=== PATIENT | male | born 1990 | race African-American/Black ===

== ENCOUNTER 2016-11-19 22:01 | Emergency (ER) | payer SELFPAY ==
[~2016-11-19] VITALS: Ht 182.9 cm; Wt 62.5 kg
[~2016-11-19 22:01] MED LIST: ACET1TAB40 PO; AUG875 PO
[2016-11-19 23:20] VITALS: Ht 182.9 cm; Wt 62.5 kg
--- NOTE | 2016-11-20 02:34 | RADRPT ---
PROCEDURE: Chest. CLINICAL INDICATION: Cough. TECHNIQUE: 2 frontal views of the chest were obtained. COMPARISON: None. FINDINGS: The cardiac silhouette is within normal limits. The aortic arch is unremarkable. There is no focal consolidation, vascular congestion or pleural effusion. There is no pneumothorax. IMPRESSION: No evidence for active cardiopulmonary disease. .Jj Lyle MD, Date Time Electronically viewed and signed by .Jj Lyle MD, on 11/20/2016 02:33 .T/
[2016-11-20] MEDS ORDERED: AZIT250T94 PO (02:45)
--- NOTE | 2016-11-20 02:46 | ERD ---
ER Documentation Chief Complaint Date/Time DATE: 11/20/16 TIME: 02:46 Chief Complaint CP/chronic cough x 1 -2 months, hx of HIV, referred by PMD for chest xray. HPI Patient is a 26-year-old male with a past medical history of HIV (diagnosed in 2014, has not received treatment yet) presents to the emergency department with chest pain and a cough 2 months. Patient states that he has chest pain only when coughing. Patient states that his cough is productive in nature. Patient states that he is able to "cough up green sputum on command." Patient states that he feels as if he is "drowning in his own mucus." Patient denies any hemoptysis, fever, chills, nausea, vomiting. Patient states that he went to the [facility] clinic today and was told that he needs infectious disease specialist. Patient has appointment pending with infectious disease specialist. ROS All systems reviewed and are negative except as per history of present illness. Medications Home Meds Active Scripts Azithromycin* (Zithromax*) 250 Mg Tablet, 250 MG PO .AlicjaPACK DIRECTED, #6 TAB TAKE 500 MG (2 TABS) THE FIRST DAY THEN 250 MG (1 TAB) DAYS 2-5 Prov:CAROL MALLORY PA-C 11/20/16 Acetaminophen-Codeine* (Acetaminophen-Cod #3*) 300-30 Mg Tab, 1 TAB PO Q4H Y for PAIN, #10 TAB Prov:BROOKE MCGARRY. RELATIONSHIP MANAGER 07/02/15 Amoxicillin-Clavulanate K* (Augmentin*) 875 Mg Tab, 875 MG PO BID for 7 Days, TAB Prov:BROOKE MCGARRY. RELATIONSHIP MANAGER 07/02/15 Allergies Allergies: Coded Allergies: No Known Allergy (Unverified , 07/02/15) PMhx/Soc History of Surgery: Yes (Tonsillectomy,Adenoidectomy) Anesthesia Reaction: No Hx Neurological Disorder: No Hx Respiratory Disorders: Yes (PERSISTENT COUGH X 2 MONTHS (Oct)) Hx Cardiac Disorders: No Hx Psychiatric Problems: Yes ("UNDIAGNOSED ANXIETY AND DEPRESSION". PER PT.) Hx Miscellaneous Medical Probl: Yes (RECENT DX OF HIV +) Hx Alcohol Use: No Hx Substance Use: No Hx Tobacco Use: Yes Smoking Status: Current some day smoker Physical Exam Vitals Vital Signs Date Time Temp Pulse Resp B/P Pulse Ox O2 Delivery O2 Flow Rate FiO2 11/20/16 03:01 98.4 78 20 110/78 98 Room Air 11/19/16 23:20 98.5 98 20 121/77 99 Physical Exam GENERAL: Well-developed, well-nourished male. Appears in no acute distress. HEAD: Normocephalic, atraumatic. No deformities or ecchymosis. EYE: Pupils equal, round, and reactive to light. EOMs intact. No conjunctival erythema. No scleral icterus. No eye discharge. ENT: External ear without any masses or tenderness. Auditory canals clear bilaterally. TM visualized bilaterally, non-erythematous, non-bulging. Nasal mucosa pink with no discharge. Oropharynx is pink without any tonsillar erythema or exudates. No uvula deviation. No kissing tonsils. +White patchy discoloration to the tongue. NECK: Supple. +Cervical lymphadenopathy bilaterally- round, movable, + Post auricular lymphadenopathy- round, movable. No meningismus. No neck stiffness. LUNG: Clear to auscultation bilaterally. No rhonchi, wheezing, rales or coarse breath sounds. HEART: Regular rate and rhythm. No murmurs, rubs or gallops. ABDOMEN: Soft, nontender, and nondistended. Positive bowel sounds in all four quadrants. No rebound tenderness, no guarding. (-) McBurney's point tenderness. No CVA tenderness. BACK: No midline tenderness. EXTREMITES: Equal pulses bilaterally. No peripheral clubbing, cyanosis or edema. No unilateral leg swelling. NEUROLOGIC: Alert and oriented to person, place and time. Moving all four extremities. 5/5 strength in all extremities. Normal speech. Steady gait. SKIN: Normal color. Warm and dry. + Scabbed lesions/discolorations to bilateral palms. Results 24 hrs Current Medications Medications (Trade) Dose Ordered Sig/Fatuma Route PRN Reason Start Time Stop Time Status Last Admin Dose Admin Fluconazole (Diflucan) 150 mg ONCE ONCE PO 11/20/16 03:00 11/20/16 03:01 DC 11/20/16 02:58 Procedures/MDM ED COURSE: The patient was stable throughout ED course. I kept the patient and/or family informed of laboratory and diagnostic imaging results throughout the ED course. EKG: Read by Dr. Mg , attending physician. EKG shows normal sinus rhythm at a rate of 96 bpm.. No arrhythmias, acute ST elevations or T wave changes were noted. DIAGNOSTIC IMAGING: Read by radiologist. DIAGNOSTIC IMAGING REPORT Patient: IMLA ANTHONY : 1990 Age: 26 Sex: M MR #: [id number] DOS: 11/20/16 0138 Ordering MD: CAROL MALLORY PA-C Location: [facility] Room/Bed: PROCEDURE: Chest. CLINICAL INDICATION: Cough. TECHNIQUE: 2 frontal views of the chest were obtained. COMPARISON: None. FINDINGS: The cardiac silhouette is within normal limits. The aortic arch is unremarkable. There is no focal consolidation, vascular congestion or pleural effusion. There is no pneumothorax. IMPRESSION: No evidence for active cardiopulmonary disease. .Jj Lyle MD, MD Date Time Electronically viewed and signed by .Jj Lyle MD, MD on 11/20/2016 02:33 .T/ CC: CAROL MALLORY PA-C MEDICAL DECISION MAKING: The 26-year-old male with hx of untreated HIV who presents with a cough x 2 months. Vital signs were reviewed. Patient was afebrile. Patient was not hypoxic. ENT exam revealed white patchy tongue consistent with thrush. Lung exam was normal. EKG was within normal limits. CXR showed no evidence for active cardiopulmonary disease. Given these findings, the patients presentation is most consistent with thrush bronchitis. I have a much lower clinical concern for meningitis, sinusitis, otitis externa, acute otitis media, strep pharyngitis , epiglottitis or peritonsillar abscess. At this time, unable to rule out any opportunistic infections and complications associated with untreated HIV including but not limited PCP pneumonia, TB, Kaposi sarcoma, lymphoma and AIDS. Patient will need to be see infectious disease specialist as soon as possible and start on antiretroviral therapy. Patient understands the importance of further workup and management of his symptoms. Patient states that he has an appointment pending with an infectious diseases specialist, as given to him by the [facility] today. PRESCRIPTIONS: Z-evelin Patient advised to take Tylenol/Ibuprofen for fever and pain control. DISCHARGE: At this time, patient is stable for discharge and outpatient management. Supportive therapies such as OTC throat lozenges, salt water gurgles, popsicles and jello discussed. I have instructed the patient to follow-up with his/her primary care physician in 1-2 days. Patient will need to be seen by infectious disease specialist JODI and started on antiviral therapy. I have instructed the patient to promptly return to the ER for any new or worsening symptoms including increased pain, swelling, fever, nausea, vomiting, weakness or difficulty breathing. The patient and/or family expressed understanding of and agreement with this plan. All questions were answered. Home care instructions were provided. 11/20/16: 5:15pm, Patient was attempted to be contacted by myself on numerous occasions today. I left several messages for the patient today on phone number: [phone]. Patient was advised to return to the [facility] ER for an additional prescription of Bactrim DS. Patient should start prophylaxis treatment for pneumocystis pneumonia given history of untreated HIV and candidiasis while pending further workup of his symptoms including sputum cultures by infectious disease specialist. Patient should be started Bactrim DS x 21 days. Departure Diagnosis: Primary Impression: Acute bronchitis Bronchitis organism: unspecified organism Qualified Code: J20.9 - Acute bronchitis, unspecified organism Additional Impression: Candidiasis Condition: Stable Patient Instructions: Acute Bronchitis Referrals: [facility] YOU HAVE RECEIVED A MEDICAL SCREENING EXAM AND THE RESULTS INDICATE THAT YOU DO NOT HAVE A CONDITION THAT REQUIRES URGENT TREATMENT IN THE EMERGENCY DEPARTMENT. FURTHER EVALUATION AND TREATMENT OF YOUR CONDITION CAN WAIT UNTIL YOU ARE SEEN IN YOUR DOCTORS OFFICE WITHIN THE NEXT 1-2 DAYS. IT IS YOUR RESPONSIBILITY TO MAKE AN APPOINTMENT FOR FOLOW-UP CARE. IF YOU HAVE A PRIMARY DOCTOR --you should call your primary doctor and schedule an appointment IF YOU DO NOT HAVE A PRIMARY DOCTOR YOU CAN CALL OUR PHYSICIAN REFERRAL HOTLINE AT IF YOU CAN NOT AFFORD TO SEE A PHYSICIAN YOU CAN CHOSE FROM THE FOLLOWING [facility] [address] [facility] [address] [facility] [address] [facility] [address] [facility] [address] [facility]. [facility]. [address] [facility] [place]. [facility] YOU HAVE RECEIVED A MEDICAL SCREENING EXAM AND THE RESULTS INDICATE THAT YOU DO NOT HAVE A CONDITION THAT REQUIRES URGENT TREATMENT IN THE EMERGENCY DEPARTMENT. FURTHER EVALUATION AND TREATMENT OF YOUR CONDITION CAN WAIT UNTIL YOU ARE SEEN IN YOUR DOCTORS OFFICE WITHIN THE NEXT 1-2 DAYS. IT IS YOUR RESPONSIBILITY TO MAKE AN APPOINTMENT FOR FOLOW-UP CARE. IF YOU HAVE A PRIMARY DOCTOR --you should call your primary doctor and schedule and appointment IF YOU DO NOT HAVE A PRIMARY DOCTOR YOU CAN CALL OUR PHYSICIAN REFERRAL HOTLINE AT . IF YOU CAN NOT AFFORD TO SEE A PHYSICIAN YOU CAN CHOSE FROM THE FOLLOWING [facility] INSTITUTIONS: [facility] [address] [place] [address] [facility] [address] [place] [address] [facility] [address] [place] [address] Additional Instructions: Call your primary care doctor TOMORROW for an appointment during the next 1-2 days.See the doctor sooner or return here if your condition worsens before your appointment time. Patient will need to follow-up with infectious disease specialist for further management of his HIV. I've advised the patient to undergo outpatient testing for STDs, syphilis and other opportunistic infections. CAROL MALLORY PA-C Nov 20, 2016 02:46
[2016-11-20] MEDS ORDERED: FLUCONAZOLE 150 MG TAB PO ONE (03:00)
[2016-11-20 03:01] VITALS: BP 110/78; PULSE 78; RESP 20; TEMP 98.4
== END 2016-11-20 03:04 | disposition home or self-care (01) ==
LOC: FTE 22:01
DX: J20.9 Acute bronchitis, unspecified (principal); F17.210 Nicotine dependence, cigarettes, uncomplicated; B37.1 Pulmonary candidiasis
CPT/HCPCS: 71010; 93005

== ENCOUNTER 2016-12-22 14:13 | Emergency (ER) | payer MEDICAID ==
[~2016-12-22] VITALS: Wt 64.0 kg
[~2016-12-22 14:13] MED LIST changes: +AZIT250T94 PO
[2016-12-22] MEDS ORDERED: ONDANSETRON (ODT) 4 MG TAB ODT STA (14:44)
[2016-12-22] MEDS ORDERED: CEPH-443 PO (14:57)
[2016-12-22] MEDS ORDERED: IBUP800T25 PO (14:57)
[2016-12-22] MEDS ORDERED: HYDR-902 PO (14:57)
[2016-12-22] MEDS ORDERED: BACTDS PO (14:57)
[2016-12-22] MEDS ORDERED: HYDROCODONE/APAP (10/325) TAB PO ONE (15:00)
[2016-12-22] MEDS ORDERED: LIDOCAINE 1%/EPI (MDV) 20 ML INJ INFIL ONE (15:00)
--- NOTE | 2016-12-22 15:13 | ERD ---
ER Documentation Chief Complaint Date/Time DATE: 12/22/16 TIME: 15:11 Chief Complaint pain in rectum from hemmrhoids with intermittent bleeding for a few days. HPI 26-year-old male prior history of hemorrhoids who presents with perianal pain. He describes intermittent blood in his stool. He describes a ball-like mass just lateral on the left side of the perianal region. No fevers or chills, no drainage or discharge. Pain is severe, worse to touch. ROS All systems reviewed and are negative except as per history of present illness. Medications Home Meds Active Scripts Hydrocodone/Acetaminophen ([place]arm[place] 10-325 Tablet) 1 Each Tablet, 1 TAB PO Q6H Y for PAIN, #7 TAB Prov:MAURO ATWOOD MD 12/22/16 Ibuprofen* (Motrin*) 800 Mg Tab, 800 MG PO Q6H Y for PAIN AND OR ELEVATED TEMP, #30 TAB Prov:MAURO ATWOOD MD 12/22/16 Sulfamethoxazole-Trimethoprim* (Bactrim* DS) 800-160 Mg Tab, 1 TAB PO BID for 7 Days, TAB Prov:MAURO ATWOOD MD 12/22/16 Cephalexin* (Keflex*) 500 Mg Capsule, 500 MG PO QID for 7 Days, CAP Prov:MAURO ATWOOD MD 12/22/16 Azithromycin* (Zithromax*) 250 Mg Tablet, 250 MG PO .ZPACK DIRECTED, #6 TAB TAKE 500 MG (2 TABS) THE FIRST DAY THEN 250 MG (1 TAB) DAYS 2-5 Prov:CAROL MALLORY PA-C 11/20/16 Acetaminophen-Codeine* (Acetaminophen-Cod #3*) 300-30 Mg Tab, 1 TAB PO Q4H Y for PAIN, #10 TAB Prov:BROOKE MCGARRY SUPERVISOR VARNISH 07/02/15 Amoxicillin-Clavulanate K* (Augmentin*) 875 Mg Tab, 875 MG PO BID for 7 Days, TAB Prov:BROOKE MGCARRY. SUPERVISOR VARNISH 07/02/15 Allergies Allergies: Coded Allergies: No Known Allergy (Unverified , 07/02/15) PMhx/Soc History of Surgery: Yes (Tonsillectomy,Adenoidectomy) Anesthesia Reaction: No Hx Neurological Disorder: No Hx Respiratory Disorders: Yes (PERSISTENT COUGH X 2 MONTHS (Oct)) Hx Cardiac Disorders: No Hx Psychiatric Problems: Yes ("UNDIAGNOSED ANXIETY AND DEPRESSION". PER PT.) Hx Miscellaneous Medical Probl: Yes (RECENT DX OF HIV +) Hx Alcohol Use: No Hx Substance Use: No Hx Tobacco Use: Yes Smoking Status: Never smoker FmHx Family History: No diabetes Physical Exam Vitals Vital Signs Date Time Temp Pulse Resp B/P Pulse Ox O2 Delivery O2 Flow Rate FiO2 12/22/16 14:15 98.6 102 21 124/74 99 Physical Exam General: Well developed, well nourished, no acute distress Head: Normocephalic, atraumatic. Eyes: EOM intact ENT: Moist mucous membranes Neck: Full ROM Respiratory: No respiratory distress Cardiovascular: Good capillary refil Abdominal: Nondistended : Skin is documented below. Well-circumscribed lesion without internal palpation of abscess MSK: No edema, no unilateral swelling, 5/5 strength Neurologic: Alert and oriented, moving all extremities, normal speech, steady gait Skin: On the left perianal region the patient has an approximately 1.5 cm fluctuant, tender, indurated area with a white head consistent with abscess. No external hemorrhoid. Psych: Normal mood Results 24 hrs Current Medications Medications (Trade) Dose Ordered Sig/Fatuma Route PRN Reason Start Time Stop Time Status Last Admin Dose Admin Lidocaine/ Epinephrine (Xylocaine 1%/ Epi (Mdv) 20 ml) 20 ml ONCE ONCE INFIL 12/22/16 15:00 12/22/16 15:01 DC Acetaminophen/ Hydrocodone Bitart (Farmland (10/325)) 1 tab ONCE ONCE PO 12/22/16 15:00 12/22/16 15:01 DC 12/22/16 14:53 Ondansetron HCl (Zofran Odt) 4 mg ONCE STAT ODT 12/22/16 14:44 12/22/16 14:47 DC 12/22/16 14:52 Procedures/MDM The patient clinically has a perianal abscess. No signs or symptoms concerning for perirectal abscess. No indication for CT imaging. Incision and drainage will be appropriate. Abscess Incision and Drainage with irrigation by me: Location: Left perianal abscess Anesthesia: Local 1% Lidocaine with lidocaine Technique: Gentle pressure on the wound was able to open up the Amaya with pressure alone Packing: None Complications: Neurovascularly intact post procedure The patient was given Farmland for pain. He will be started on Bactrim and Keflex. This should cover E. coli, MRSA. No indication for pseudomonal coverage. The patient can be safely discharged home with close primary care follow-up. Outpatient general surgery follow-up recommended. Return precautions including fevers, pain, worsening symptoms. We discussed follow up with the patient's primary care doctor within 24 to 48 hours as needed. We also discussed return to the emergency room for worsening symptoms or worsening condition. Discharge Medications: Bactrim, Keflex, Farmland We discussed the use of narcotics including avoidance of operating heavy machinery and driving as well as its addictive properties. Departure Diagnosis: Primary Impression: Perianal abscess Condition: Stable Patient Instructions: Manuela-Anal Abscess, I And D Referrals: Jada JOHNSON KAMBIZ M.D. [facility] YOU HAVE RECEIVED A MEDICAL SCREENING EXAM AND THE RESULTS INDICATE THAT YOU DO NOT HAVE A CONDITION THAT REQUIRES URGENT TREATMENT IN THE EMERGENCY DEPARTMENT. FURTHER EVALUATION AND TREATMENT OF YOUR CONDITION CAN WAIT UNTIL YOU ARE SEEN IN YOUR DOCTORS OFFICE WITHIN THE NEXT 1-2 DAYS. IT IS YOUR RESPONSIBILITY TO MAKE AN APPOINTMENT FOR FOLOW-UP CARE. IF YOU HAVE A PRIMARY DOCTOR --you should call your primary doctor and schedule an appointment IF YOU DO NOT HAVE A PRIMARY DOCTOR YOU CAN CALL OUR PHYSICIAN REFERRAL HOTLINE AT IF YOU CAN NOT AFFORD TO SEE A PHYSICIAN YOU CAN CHOSE FROM THE FOLLOWING [facility] [address] [facility]. [facility] [address] [facility]. [facility] [address] [facility]. [facility] [address] [facility]. [facility] [address] [facility]. [facility] [address] [facility] YOU HAVE RECEIVED A MEDICAL SCREENING EXAM AND THE RESULTS INDICATE THAT YOU DO NOT HAVE A CONDITION THAT REQUIRES URGENT TREATMENT IN THE EMERGENCY DEPARTMENT. FURTHER EVALUATION AND TREATMENT OF YOUR CONDITION CAN WAIT UNTIL YOU ARE SEEN IN YOUR DOCTORS OFFICE WITHIN THE NEXT 1-2 DAYS. IT IS YOUR RESPONSIBILITY TO MAKE AN APPOINTMENT FOR FOLOW-UP CARE. IF YOU HAVE A PRIMARY DOCTOR --you should call your primary doctor and schedule and appointment IF YOU DO NOT HAVE A PRIMARY DOCTOR YOU CAN CALL OUR PHYSICIAN REFERRAL HOTLINE AT . IF YOU CAN NOT AFFORD TO SEE A PHYSICIAN YOU CAN CHOSE FROM THE FOLLOWING [facility] INSTITUTIONS: [facility] [address] [place] [address] [facility] [address] [place] [address] [facility] + [facility] [address] [place] [address] Additional Instructions: Return for fever, worsening pain. Call your primary care doctor TOMORROW for an appointment during the next 1 WEEK.Tell the counter tender that you were referred from this facility.See the doctor sooner or return here if your condition worsens before your appointment time. MAURO ATWOOD MD Dec 22, 2016 15:13
== END 2016-12-22 15:30 | disposition home or self-care (01) ==
LOC: FTE 14:13
DX: K61.0 Anal abscess (principal); Z87.891 Personal history of nicotine dependence
CPT/HCPCS: 46050; Z7502; Z7610

== ENCOUNTER 2017-09-19 16:45 | Emergency (ER) | payer MEDICAID, OTHER ==
[~2017-09-19] VITALS: Ht 180.3 cm; Wt 63.5 kg
[~2017-09-19 16:45] MED LIST changes: +BACTDS PO; +CEPH-443 PO; +HYDR-902 PO; +IBUP800T25 PO
[2017-09-19 16:48] VITALS: Ht 180.3 cm; Wt 63.5 kg
--- NOTE | 2017-09-19 17:06 | ERD ---
ER Documentation Chief Complaint Chief Complaint partner dx syphillis, would like to be treated HPI Patient is a 27-year-old male who found out 1 week ago with his partner was diagnosed with syphilis. He would like to be treated. He has no urinary or symptoms. No dysuria hematuria frequency. No discharge. No penile rash or ulcer. He has admitted to sore throat and generalized body aches. No fever. No nausea or vomiting. ROS All systems reviewed and are negative except as per history of present illness. Medications Home Meds Active Scripts Hydrocodone/Acetaminophen ([place] 10-325 Tablet) 1 Each Tablet, 1 TAB PO Q6H Y for PAIN, #7 TAB Prov:MAURO ATWOOD MD 12/22/16 Ibuprofen* (Motrin*) 800 Mg Tab, 800 MG PO Q6H Y for PAIN AND OR ELEVATED TEMP, #30 TAB Prov:MAURO ATWOOD MD 12/22/16 Sulfamethoxazole-Trimethoprim* (Bactrim* DS) 800-160 Mg Tab, 1 TAB PO BID for 7 Days, TAB Prov:MAURO ATWOOD MD 12/22/16 Cephalexin* (Keflex*) 500 Mg Capsule, 500 MG PO QID for 7 Days, CAP Prov:MAURO ATWOOD MD 12/22/16 Azithromycin* (Zithromax*) 250 Mg Tablet, 250 MG PO .ZPACK DIRECTED, #6 TAB TAKE 500 MG (2 TABS) THE FIRST DAY THEN 250 MG (1 TAB) DAYS 2-5 Prov:CAROL MALLORY PA-C 11/20/16 Acetaminophen-Codeine* (Acetaminophen-Cod #3*) 300-30 Mg Tab, 1 TAB PO Q4H Y for PAIN, #10 TAB Prov:BROOKE MCGARRY MANAGER MEDICARE MARKETING 07/02/15 Amoxicillin-Clavulanate K* (Augmentin*) 875 Mg Tab, 875 MG PO BID for 7 Days, TAB Prov:BROOKE MCGARRY MANAGER MEDICARE MARKETING 07/02/15 Allergies Allergies: Coded Allergies: No Known Allergy (Unverified , 07/02/15) PMhx/Soc History of Surgery: Yes (Tonsillectomy,Adenoidectomy) Anesthesia Reaction: No Hx Neurological Disorder: No Hx Respiratory Disorders: Yes (PERSISTENT COUGH X 2 MONTHS (Oct)) Hx Cardiac Disorders: No Hx Psychiatric Problems: Yes ("UNDIAGNOSED ANXIETY AND DEPRESSION". PER PT.) Hx Miscellaneous Medical Probl: Yes (RECENT DX OF HIV +) Hx Alcohol Use: No Hx Substance Use: No Hx Tobacco Use: Yes FmHx Family History: No diabetes Physical Exam Vitals Vital Signs Date Time Temp Pulse Resp B/P Pulse Ox O2 Delivery O2 Flow Rate FiO2 09/19/17 16:48 97.6 66 18 133/67 99 Physical Exam INITIAL VITAL SIGNS: Reviewed by me GENERAL: Awake, alert and oriented x 4, well appearing, nontoxic, speaking in full sentences. No acute distress HEAD: Atraumatic RESPIRATORY: Clear to auscultation bilaterally. Symmetric chest wall rise. No wheezing or rales. No accessory muscle use. CV: Regular rate and rhythm. No murmurs, rubs, or gallops. ABDOMEN: Soft, non-distended. Nontender : Deffered. Procedures/MDM 27-year-old male presents, stating that his partner was recently diagnosed with syphilis and he would like to be treated. Patients is alert, oriented, well appearing, and in no distress with normal vital signs. There is no fever, tachycardia, or tachypnea. He has no symptoms and therefore GI examination was deferred. He was given IM injection of penicillin here. I explained him he should revisit wait till him and his partner complete treatment before engaging in any sexual activity. She will follow-up with primary care for further Patient counseled regarding my diagnostic impression and care plan. Prior to discharge all questions answered. Pt agrees with treatment plan and understands strict return precautions. Pt is instructed to follow up with primary care provider within 24-48 hours. Precautionary instructions provided including instructions to return to the ER if not improving or for any worsening or changing symptoms or concerns. Departure Diagnosis: Primary Impression: Sexually transmissible disease Condition: Stable JACQUELINE SU PA-C Sep 19, 2017 17:06
[2017-09-19] MEDS ORDERED: PENICILLIN G BENZ 2.4 MIL UNIT SYG IM ONE (17:30)
== END 2017-09-19 17:35 | disposition home or self-care (01) ==
LOC: FTE 16:45
DX: A64 Unspecified sexually transmitted disease (principal); Z87.891 Personal history of nicotine dependence
CPT/HCPCS: 96372; J0561; Z7502